=== PATIENT | female | born 1935 | race Hispanic/Latino ===

== ENCOUNTER 2017-09-22 12:46 | Emergency (ER) | payer OTHER ==
[2017-09-22 12:53] VITALS: BP 143/75; PULSE 84; RESP 16; TEMP 97.8; O2SAT 100
--- NOTE | 2017-09-22 13:30 | ED PDOC ---
HPI: General Adult Time Seen by Provider: 09/22/17 12:57 Chief Complaint (Nursing): Weakness/Neurological Deficit Chief Complaint (Provider): Cough History Per: Patient History/Exam Limitations: no limitations Onset/Duration Of Symptoms: Days (4) Additional Complaint(s): Pt. states she has a cough, a phlegm. All slightly per pt. Denies nausea, vomit, dizziness, dyspnea, chest pain, headaches, dizziness, weakness, abd pain. No fever. Per , pt. not sleeping at nights and dementia is getting worse. Is walking around at night and has agitation episodes. Not suicidal or homicidal. No drugs or etoh. Past Medical History Reviewed: Nursing Documentation, Vital Signs Vital Signs: Last Vital Signs Temp 97.8 F 09/22/17 12:49 Pulse 84 09/22/17 12:49 Resp 16 09/22/17 12:49 BP 143/75 09/22/17 12:49 Pulse Ox 100 09/22/17 13:40 - Medical History PMH: No Chronic Diseases - Surgical History Surgical History: No Surg Hx - Family History Family History: States: Unknown Family Hx - Living Arrangements Living Arrangements: With Family - Social History Current smoker - smoking cessation education provided: No Alcohol: None Drugs: Denies - Allergies Allergies/Adverse Reactions: Allergies Allergy/AdvReac Type Severity Reaction Status Date / Time No Known Allergies Allergy Verified 09/22/17 12:48 Review of Systems ROS Statement: Except As Marked, All Systems Reviewed And Found Negative ENT: Positive for: Nose Congestion Respiratory: Positive for: Cough Physical Exam - Reviewed Nursing Documentation Reviewed: Yes Vital Signs Reviewed: Yes - Physical Exam Appears: Positive for: Non-toxic, No Acute Distress Head Exam: Positive for: ATRAUMATIC, NORMAL INSPECTION, NORMOCEPHALIC Skin: Positive for: Normal Color, Warm, DRY Eye Exam: Positive for: EOMI, Normal appearance, PERRL ENT: Positive for: Nasal Congestion (mild) Neck: Positive for: Normal, Painless ROM Cardiovascular/Chest: Positive for: Regular Rate, Rhythm Respiratory: Positive for: CNT, Normal Breath Sounds Gastrointestinal/Abdominal: Positive for: Normal Exam, Bowel Sounds, Soft. Negative for: Tenderness Back: Positive for: Normal Inspection. Negative for: L CVA Tenderness, R CVA Tenderness Extremity: Positive for: Normal ROM. 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 Negative for: Motor/Sensory Deficits, Aphasia, Facial Droop - ECG O2 Sat by Pulse Oximetry: 100 Pulse Ox Interpretation: Normal - Progress ED Course And Treament: 1502: flu neg Stable. AAOx3. Pain free. Tolerated PO. Fu with pcp. Crisis saw pt. Does not meet criteria. Disposition - Clinical Impression Clinical Impression: Cough - Patient ED Disposition Is Patient to be Admitted: No - Disposition Disposition: Transfer of Care Disposition Time: 15:03 Condition: STABLE Additional Instructions: F/U AT [facility] IF NEEDED LOCATED AT [address] [place] [address] Instructions: Acute Cough (ED)
== END 2017-09-22 17:06 | disposition home or self-care (01) ==
LOC: H.ER 12:46
DX: R05 Cough (principal)